=== PATIENT | female | born 1945 | race Caucasian/White ===

== ENCOUNTER 2016-04-20 09:23 | Emergency (ER) | payer MEDICARE, BC ==
[2016-04-20 09:41] VITALS: BP 135/63
--- NOTE | 2016-04-20 10:03 | UC ---
Eye Complaint HPI - HPI Summary HPI Summary: right eye itchy pink with clear drainage for one day---no other cold symptoms - History of Current Complaint Chief Complaint: UCEye Stated Complaint: POSS PINK EYE COMPLAINT Time Seen by Provider: 04/20/16 09:37 Hx Obtained From: Patient ?: No Onset/Duration: Sudden Onset, Lasting Days - 1 Timing: Constant Severity Initially: Mild Severity Currently: Mild Location of Injury: Conjunctiva Character: Foreign Body Sensation Aggravating Factor(s): Nothing Alleviating Factor(s): Nothing Associated Signs And Symptoms: Positive: Drainage (Clear). Negative: Photophobia, Drainage (Purulent), Vision Impairment Bilateral, Vision Impairment Right, Vision Impairment Left, Fever, Swelling - Allergies/Home Medications Allergies/Adverse Reactions: Allergies Allergy/AdvReac Type Severity Reaction Status Date / Time No Known Allergies Allergy Verified 04/20/16 09:34 Home Medications: Home Medications Amlodipine Besylate [Norvasc-] 04/20/16 [History] Aspirin [[facility] Adult] 04/20/16 [History] Hydrochlorothiazide [Microzide-] 04/20/16 [History] PMH/Surg Hx/FS Hx/Imm Hx Previously Healthy: No Cardiovascular History Of: Reports: Hypertension Denies: Cardiac Disorders Cancer History Of: Denies: Breast Cancer - Surgical History Surgical History: None - Family History Family History: denies cardio-vascular issues in family lineage - Social History Occupation: Retired Lives: With Family Alcohol Use: Daily Alcohol Amount: 1 glass of wine every night Substance Use Type: None Smoking Status (MU): Never Smoked Tobacco Review of Systems Constitutional: Negative Skin: Negative Eyes: Drainage - od clear, Eye Redness - od ENT: Negative Respiratory: Negative Cardiovascular: Negative Gastrointestinal: Negative Genitourinary: Negative Motor: Negative Neurovascular: Negative Musculoskeletal: Negative Neurological: Negative Psychological: Negative All Other Systems Reviewed And Are Negative: Yes Physical Exam Triage Information Reviewed: Yes Appearance: Well-Appearing, No Pain Distress, Well-Nourished Vital Signs: Initial Vital Signs Temp 99.4 F 04/20/16 09:36 Pulse 75 04/20/16 09:36 Resp 16 04/20/16 09:36 BP 135/63 04/20/16 09:36 Pulse Ox 100 04/20/16 09:36 Vital Signs Reviewed: Yes Eye Exam: Normal Eyes: Positive: Conjunctiva Inflamed - od, Discharge - clear od ENT Exam: Normal ENT: Positive: Normal ENT inspection, Hearing grossly normal, Pharynx normal, Nasal drainage, TMs normal. Negative: Tonsillar swelling, Tonsillar exudate, Trismus, Muffled/hoarse voice Dental Exam: Normal Neck exam: Normal Neck: Positive: Supple, Nontender Respiratory Exam: Normal Respiratory: Positive: No respiratory distress, No accessory muscle use Cardiovascular Exam: Normal Cardiovascular: Positive: RRR, Pulses Normal, Brisk Capillary Refill Musculoskeletal Exam: Normal Musculoskeletal: Positive: Strength Intact, ROM Intact, No Edema Neurological Exam: Normal Neurological: Positive: Alert, Muscle Tone Normal Psychological Exam: Normal Skin Exam: Normal Eye Complaint Course/Dx - Course Course Of Treatment: polytrim eye drops---concider zyrtec as well follow with pcp re-check prn - Differential Dx/Diagnosis Differential Diagnosis/HQI/PQRI: Conjunctivitis, Periorbital Cellulitis, Orbital Cellulitis Provider Diagnoses: OD Conjuctivitis Discharge - Discharge Plan Condition: Stable Disposition: HOME Prescriptions: Polymyx/Trimethoprim OPTH* [Polytrim OPHTH*] 1 drop RIGHT EYE Q3H #1 btl Patient Education Materials: How to Use Eye Drops (ED), Conjunctivitis (ED) Referrals: Nicho Olivo MD [Primary Care Provider] - If Needed
== END 2016-04-20 10:05 | disposition home or self-care (01) ==
LOC: UCEAST 09:23
DX: H10.31 Unspecified acute conjunctivitis, right eye (principal); I10 Essential (primary) hypertension; Z79.82 Long term (current) use of aspirin
CPT/HCPCS: 99212; G0463

== ENCOUNTER 2016-07-22 10:33 | Emergency (ER) | payer MEDICARE, BC ==
[2016-07-22] MEDS ORDERED: HYDROcodone/ACETAMIN 5-325 MG* 1 TAB PO ONE (11:38)
[2016-07-22 11:47] VITALS: BP 125/78
--- NOTE | 2016-07-22 12:11 | RAD ---
INDICATION: Right thumb injury COMPARISON: None TECHNIQUE: AP, lateral, and oblique views were obtained. FINDINGS: There is no acute fracture. There is moderate IP, MCP, and CMC joint osteoarthritis. There is mild soft tissue swelling at the IP joint. IMPRESSION: OSTEOARTHRITIS. NO ACUTE FRACTURE.
--- NOTE | 2016-07-22 12:27 | UC ---
Upper Extremity HPI - HPI Summary HPI Summary: Shut right thumb in car door yesterday, has full rom bruising 2/3 upper thumb, subungal hematoma, well approximated 32.5 cm laceration on lateral hernandez surface of thumb - History of Current Complaint Chief Complaint: UCUpperExtremity Stated Complaint: THUMB INJURY Time Seen by Provider: 07/22/16 11:33 Hx Obtained From: Patient Hx Last Menstrual Period: NA ?: No Onset/Duration: Sudden Onset, Lasting Days - 1, Still Present Severity Initially: Moderate Severity Currently: Moderate Pain Intensity: 6 Pain Scale Used: 0-10 Numeric Location Of Pain: Is Discrete @ - right thumb Character: Aching Aggravating Factor(s): Movement, Lifting Alleviating Factor(s): Ice, OTC Meds Associated Signs And Symptoms: Positive: Swelling, Redness, Bruising Related History: Dominant Hand Right - Allergies/Home Medications Allergies/Adverse Reactions: Allergies Allergy/AdvReac Type Severity Reaction Status Date / Time No Known Allergies Allergy Verified 04/20/16 09:34 PMH/Surg Hx/FS Hx/Imm Hx Previously Healthy: No Cardiovascular History Of: Reports: Hypertension Denies: Cardiac Disorders Cancer History Of: Denies: Breast Cancer - Surgical History Surgical History: None - Family History Family History: denies cardio-vascular issues in family lineage - Social History Occupation: Retired Lives: With Family Alcohol Use: Daily Alcohol Amount: 1 glass of wine every night Substance Use Type: None Smoking Status (MU): Never Smoked Tobacco Review of Systems Constitutional: Negative Skin: Bruising - right thumb, Other - approximated 2.5 cm laceration on lateral hernandez surface of thumb Eyes: Negative ENT: Negative Respiratory: Negative Cardiovascular: Negative Gastrointestinal: Negative Genitourinary: Negative Motor: Negative Neurovascular: Negative Musculoskeletal: Arthralgia - right thumb, Edema - right thumb Neurological: Negative Psychological: Negative All Other Systems Reviewed And Are Negative: Yes Physical Exam Triage Information Reviewed: Yes Appearance: Well-Appearing, No Pain Distress, Well-Nourished Vital Signs: Initial Vital Signs Temp 98.3 F 07/22/16 11:42 Pulse 74 07/22/16 11:42 Resp 16 07/22/16 11:42 BP 125/78 07/22/16 11:42 Pulse Ox 99 07/22/16 11:42 Vital Signs Reviewed: Yes Eye Exam: Normal Eyes: Positive: Conjunctiva Clear ENT Exam: Normal ENT: Positive: Normal ENT inspection, Hearing grossly normal. Negative: Nasal congestion, Nasal drainage, Trismus, Muffled/hoarse voice Dental Exam: Normal Neck exam: Normal Neck: Positive: Supple, Nontender Respiratory Exam: Normal Respiratory: Positive: Chest non-tender, Lungs clear, Normal breath sounds, No respiratory distress, No accessory muscle use Cardiovascular Exam: Normal Cardiovascular: Positive: RRR, No Murmur, Pulses Normal, Brisk Capillary Refill Musculoskeletal Exam: Normal Musculoskeletal: Positive: Strength Intact, ROM Intact, Edema @ - right thumb Neurological Exam: Normal Neurological: Positive: Alert, Muscle Tone Normal Psychological Exam: Normal Psychological: Positive: Normal Response To Family Skin Exam: Normal Skin: Positive: Other - 2.5 cm laceration well approximated- Diagnostics - Radiology No standard instances Xray Interpretation: No Acute Changes Radiology Interpretation Completed By: Radiologist Upper Extremity Course/Dx - Course Course Of Treatment: bandage, splint, folllow with pcp - Differential Dx/Diagnosis Differential Diagnosis/HQI/PQRI: Bursitis, Contusion, Fracture (Open), Fracture (Closed), Strain, Sprain Provider Diagnoses: contusion, crush injury no fracture tho (R) thumb Discharge - Discharge Plan Condition: Stable Disposition: HOME Patient Education Materials: Subungual Hematoma (ED), Contusion in Adults (ED) , RICE Therapy (ED), Laceration Without Closure (ED), Crush Injury (ED) Referrals: Nicho Olivo MD [Primary Care Provider] - If Needed
== END 2016-07-22 13:15 | disposition home or self-care (01) ==
LOC: UCEAST 10:33
DX: S67.01XA Crushing injury of right thumb, initial encounter (principal); I10 Essential (primary) hypertension; W23.1XXA Caught, crushed, jammed, or pinched between stationary objects, initial encounter
CPT/HCPCS: 99211; G0463

== ENCOUNTER 2018-07-22 17:16 | Inpatient (IN) | payer BC, MEDICARE ==
--- NOTE | 2018-07-22 18:16 | ED ---
Abdominal Pain/Female - HPI Summary HPI Summary: A 73 y/o female presents to [facility] with a chief complaint of lower abdominal pain today. She reports a Hx of chronic diarrhea. She had diarrhea at 14:00 today. She says her pain is now an 8/10 in severity. She denies any CP or SOB. She cannot pass gas. She also c/o N/V, last vomiting one hour [facility]. She was not diagnosed with Chron's or ulcerative colitis. She believes she has anxiety. She denies having any surgeries. She is on BP medication and a water pill. She also takes Imodium for the diarrhea. - History of Current Complaint Chief Complaint: EDAbdBlackin Stated Complaint: ABD PAIN PER Time Seen by Provider: 07/22/18 17:43 Hx Obtained From: Patient Hx Last Menstrual Period: NA Onset/Duration: Sudden Onset, Lasting Hours Timing: Constant Severity Initially: Severe Severity Currently: Severe Pain Intensity: 8 Pain Scale Used: 0-10 Numeric Location: Diffuse - lower Radiates: No Character: Other: - unable to describe Aggravating Factor(s): Nothing Alleviating Factor(s): Nothing Associated Signs and Symptoms: Positive: Nausea, Vomiting, Diarrhea. Negative: Fever, Chest Pain Allergies/Adverse Reactions: Allergies Allergy/AdvReac Type Severity Reaction Status Date / Time No Known Allergies Allergy Verified 07/22/18 17:44 Home Medications: Home Medications Aspirin EC TAB* [Ecotrin EC Low Dose 81 MG*] 81 mg PO DAILY 07/22/18 [History Confirmed 07/22/18] Hydrochlorothiazide TAB* [Hydrodiuril TAB*] 12.5 mg PO DAILY 07/22/18 [History Confirmed 07/22/18] Loperamide HCl [Imodium A-D] 2 mg PO DAILY PRN 07/22/18 [History Confirmed 07/22] amLODIPine TAB* [Norvasc 5 mg TAB*] 10 mg PO DAILY 07/22/18 [History Confirmed 07/22/18] PMH/Surg Hx/FS Hx/Imm Hx Cardiovascular History: Reports: Hx Hypertension Sensory History: Denies: Hx Deafness EENT History: Denies: Hx Deafness - Cancer History Hx Chemotherapy: No Hx Radiation Therapy: No Infectious Disease History: No Infectious Disease History: Denies: Traveled Outside the [place] in Last 30 Days - Family History Known Family History: Negative: Blood Disorder Family History: denies cardio-vascular issues in family lineage - Social History Alcohol Use: Daily Alcohol Amount: 1 glass of wine every night Substance Use Type: Reports: None Smoking Status (MU): Never Smoked Tobacco Review of Systems Negative: Fever Negative: Chest Pain Negative: Shortness Of Breath Positive: Abdominal Pain, Vomiting, Diarrhea, Nausea All Other Systems Reviewed And Are Negative: Yes Physical Exam - Summary Physical Exam Summary: GENERAL: Patient is a well-developed and nourished F who is lying comfortable in the stretcher. Patient is not in any acute respiratory distress. HEAD AND FACE: Normocephalic EYES: PERRLA, EOMI x 2. EARS: Hearing grossly intact. MOUTH: Oropharynx within normal limits. NECK: Supple, trachea is midline, no adenopathy, no JVD, no carotid bruit. CHEST: Symmetric, no tenderness at palpation LUNGS: Clear to auscultation bilaterally. No wheezing or crackles. CVS: Regular rate and rhythm, S1 and S2 present, no murmurs or gallops appreciated. ABDOMEN: Soft, TTP no rebound or guarding. Bowel sounds are normal. No abdominal abnormal pulsations. EXTREMITIES: Full ROM in all major joints, no edema, no cyanosis or clubbing. NEURO: Alert and oriented x 3. No acute neurological deficits. Speech is normal and follows commands. SKIN: Dry and warm Triage Information Reviewed: Yes Vital Signs On Initial Exam: Initial Vitals Temp Pulse Resp BP Pulse Ox 98.3 F 75 16 132/83 97 07/22/18 17:21 07/22/18 17:21 07/22/18 17:21 07/22/18 17:21 07/22/18 17:21 Vital Signs Reviewed: Yes Diagnostics - Vital Signs Vital Signs Temp Pulse Resp BP Pulse Ox 07/22/18 17:21 98.3 F 75 16 132/83 97 - Laboratory Result Diagrams: 07/23/18 05:28 07/23/18 05:28 Lab Statement: Any lab studies that have been ordered have been reviewed, and results considered in the medical decision making process. Abdominal Pain Fem Course/Dx - Course Course Of Treatment: A 73 y/o female presents to [facility] with a chief complaint of lower abdominal pain today. She reports a Hx of chronic diarrhea. The physical exam revealed that the patient was TTP in her lower abdomen. The patient will be signed out from Dr. Benson to Dr. Parikh upon shift change pending labs and CT abdomen/pelvis. - Diagnoses Provider Diagnoses: Acute diverticulitis, Perforated bowel Discharge - Sign-Out/Discharge Documenting (check all that apply): Sign-Out Patient Signing out patient TO: Israel Parikh - pending labs and CT abdomen/pelvis Patient Received Moderate/Deep Sedation with Procedure: No - Discharge Plan Condition: Stable Disposition: ADMITTED TO [facility] - Billing Disposition and Condition Condition: STABLE Disposition: Admitted to [facility] - Attestation Statements Document Initiated by Scribe: Yes Documenting Scribe: José Miguel Trujillo Provider For Whom Scribe is Documenting (Include Credential): Flora Benson MD Scribe Attestation: José Miguel Fortune scribed for Flora Benson MD on 07/23/18 at 1250. Scribe Documentation Reviewed: Yes Provider Attestation: The documentation as recorded by the José Miguel salazar accurately reflects the service I personally performed and the decisions made by me, Ramon Benson MD Status of Scribe Document: Viewed
[2018-07-22] MEDS ORDERED: Ondansetron INJ* 2 MG/ML VIAL IV ONE (18:31)
[2018-07-22] MEDS ORDERED: NS 0.9% 1000 ML** 1,000 ML IV ONE ×2 (18:31→23:30)
[2018-07-22] MEDS ORDERED: Morphine 4 MG/ML VIAL (1 ml) 4 MG/ML VIAL IV ONE (18:31)
[2018-07-22 19:39] LABS: ABS Basophils 0.1 10^3/ul (0-0.2); ABS Eosinophils 0 10^3/ul (0-0.6); ABS Lymphocytes 0.5 10^3/ul (1.0-4.8); ABS Monocytes 0.7 10^3/ul (0-0.8); ABS Nucleated RBC 0 10^3/ul; Eosinophil % 0.1 %; Hematocrit 40 % (33-41); Hemoglobin 13.7 g/dL (12.0-16.0); Mean Corpuscular HGB Conc 34 g/dL (31-36); Mean Corpuscular Hemoglobin 33 pg (27-31); Mean Corpuscular Volume 97 fL (80-97); Mean Platelet Volume 9.1 fL (7.4-10.4); Nucleated Red Blood Cells % 0; Platelet Count 217 10^3/uL (150-450); Red Blood Count 4.15 10^6 /uL (3.70-4.87); Red Cell Distribution Width 12 % (10.5-15); White Blood Count 12.3 10^3/uL (3.5-10.8)
[2018-07-22 19:51] LABS: Albumin 3.7 g/dL (3.2-5.2); Albumin/Globulin Ratio 1.4 (1-3); BUN/Creatinine Ratio 17.6 (8-20); C Reactive Protein 33.99 mg/L (<8.01); Calcium 8.9 mg/dL (8.6-10.3); EGFR African American 92.6 (>60); EGFR Non-African American 76.5 (>60); Globulin 2.7 g/dL (2-4); Potassium 3.7 mmol/L (3.5-5.0); Total Bilirubin 0.6 mg/dL (0.2-1.0); Total Protein 6.4 g/dL (6.4-8.9)
--- NOTE | 2018-07-22 21:16 | ED ---
Progress - Progress Note Progress Note: Patient signed out from Dr. Benson, awaiting pending CT Abd/Pel and labs, pending disposition. - Results/Orders Results/Orders: Chest X-ray reveals no acute processes as per ED Physician. CT A/P reveals as per radiologist. 1. There is colonic diverticulosis with abnormal wall thickening and fat stranding in the sigmoid colon consistent with acute diverticulitis and there are pericolonic air collections in the pelvis consistent with loculated perforation related to acute diverticulitis but no visible discrete abscess. No nonloculated free air however. 2. There is oral contrast in the distal esophagus, cannot exclude gastroesophageal reflux. 3. There is cholelithiasis without pericholecystic inflammatory change. 4. There are mildly prominent loops of jejunum in the upper to midabdomen with air-fluid levels suspicious for mild focal ileus versus some degree of small bowel obstruction. The ED Physician has reviewed the radiology report. Course/Dx - Course Course Of Treatment: 73 year old [facility] complains of lower abdominal pain beginnign today. Patient was signed out from Dr. Benson, awaiting labs and CT Abd/Pel. Labs are unremarkable. CT Abd/Pel, per radiologist, shows positive findings. The dx will be Acute diverticulitis. Perforated Bowel. Chest X-ray reveals no acute process. We discussed CT A/P findings with Dr. Chou at 0000. He recommended that the patient be admitted to the hospital. We paged the hospitalist at 0005. We discussed patient care with Dr. George at 0012 and the hospitalist accepts patient care. The patient will be admitted to the [facility]. The patient is agreeable to this plan. - Diagnoses Provider Diagnoses: Acute diverticulitis, Perforated bowel - Provider Notifications Discussed Care Of Patient With: Katarzyna George - Patient Care Time Discussed With Above Provider: 00:12 Discharge - Sign-Out/Discharge Documenting (check all that apply): Patient Departure - Admitted to the [facility] Patient Received Moderate/Deep Sedation with Procedure: No - Discharge Plan Condition: Stable Disposition: ADMITTED TO [facility] - Attestation Statements Document Initiated by Scribe: Yes Documenting Scribe: Anette Pteerson Provider For Whom Scribe is Documenting (Include Credential): Israel Parikh MD Scribe Attestation: Anette Fortune, scribed for Israel Parikh MD on 07/23/18 at 0107. Status of Scribe Document: Ready
[2018-07-22] MEDS ORDERED: Iohexol 300* (CONTRAST) 10 ML SDV IV ONE (21:22)
[2018-07-22 22:25] LABS: Urine Appearance Cloudy; Urine Bacteria Absent (Absent); Urine Bilirubin Negative (Negative); Urine Blood 1+ (Negative); Urine Color Yellow; Urine Glucose Negative (Negative); Urine Ketones 1+ (Negative); Urine Nitrite Negative (Negative); Urine Protein Negative (Negative); Urine Red Blood Cell Trace(0-2/hpf) (Absent); Urine Specific Gravity 1.042 (1.010-1.030); Urine Squamous Epithelial Cell Present (Absent); Urine Urobilinogen Negative (Negative); Urine White Blood Cell 2+(11-20/hpf) (Absent)
[2018-07-22] MEDS ORDERED: Acetaminophen TAB* 325 MG PO ONE (23:29)
[2018-07-22] MEDS ORDERED: ED Piperacillin/Tazobac 3.375 3.375 GM/100 ML PREMIX.SET IVPB ONE (23:29)
[2018-07-22] MEDS ORDERED: Zosyn 3.375 GM IV - ED ONCE IVPB ONE ×2 (23:50)
[2018-07-23] MEDS ORDERED: Morphine INJ* 2 MG/ML 1 ML SYRINGE (TWO MG - NEW SYRINGE VERSION) IV PRN (00:16)
[2018-07-23] MEDS ORDERED: Ondansetron INJ* 2 MG/ML VIAL IV PRN (00:16)
[2018-07-23] MEDS ORDERED: Zosyn per Pharmacy* NOTE FOLLOW UP SCH (01:00)
[2018-07-23] MEDS ORDERED: Morphine 4 MG/ML VIAL (1 ml) 4 MG/ML VIAL IV PRN (01:25)
[2018-07-23] MEDS: D5W 1/2 NS KCl 20 Meq 1000 ML* 1,000 ML IV SCH ×2 (01:54→13:11)
[2018-07-23] MEDS: ZOSYN 3.375 GM Q8H per EXTENDED INFUSION IVPB SCH ×6 (04:24→19:25)
--- NOTE | 2018-07-23 04:35 | HP ---
CC: Dr. Nicho Olivo * HISTORY AND PHYSICAL: DATE OF ADMISSION: 07/23/18 PRIMARY CARE PHYSICIAN: Dr. Nicho Olivo. HEALTHCARE PROXY: Kiko Noe, , . CODE STATUS: Full code. CHIEF COMPLAINT: Subacute lower abdominal pain. HISTORY OF PRESENT ILLNESS: Ms. Noe is a 73-year-old woman with hypertension and chronic intermittent diarrhea, who is presenting with subacute crampy lower abdominal pain. She reports that this pain started approximately 3 days ago and was not associated with any other symptoms at that time. She did report diarrhea, which was chronic, unchanged from previously, and without blood or black in her stools. Her appetite was fine and her symptoms had improved by the next day, so she did not think anything of her initial episode of abdominal pain. However, on day of presentation, bilateral lower abdominal pain returned and was progressive and associated with nausea and vomiting. She took Pepto- Bismol for the pain, but in the afternoon on day of presentation, she vomited the medication. She denies recent fevers, chills, night sweats, chest pain, shortness of breath, or constipation. She denies any recent changes to diet, sick contacts, and no recent travel. In the emergency room, the patient was initially without concerning vital signs or lab findings; however, while pending abdominal CT, the patient was noted to have a fever of 102.8. Her lactate was normal, and her blood pressures were also normal. CT scan resulted concerning for perforated diverticulitis, so Surgery was consulted, who recommended to admit the patient with IV antibiotics with plan to evaluated her in the morning. The patient was started on IV Zosyn , given Zofran, 2 L of normal saline, and morphine and admitted to Medicine. PAST MEDICAL HISTORY: 1. Hypertension. 2. Chronic diarrhea associated with anxiety. PAST SURGICAL HISTORY: 1. 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 2. Oophorectomy. HOME MEDICATIONS: 1. Amlodipine 10 mg daily. 2. Hydrochlorothiazide 12.5 mg daily. 3. Aspirin 81 mg daily. 4. Loperamide 2 mg daily as needed for diarrhea. ALLERGIES: No known drug allergies. FAMILY HISTORY: Father from brain tumor. Mother also had breast tumors. No history of GI illness or colon cancer. 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 She lives with her . She denies tobacco use or drugs, but does drink 1 to 2 glasses of wine every night. PHYSICAL EXAMINATION GENERAL: Well-appearing woman, in no acute distress, nontoxic appearing. VITAL SIGNS: T-max 102.8, heart rate 70s, respiratory rate 12, blood pressure 113/75, SaO2 98% on 2 L nasal cannula. HEENT: Pupils equal, round, and reactive to light. NECK: No JVD. LUNGS: Clear to auscultation bilaterally. CARDIAC: Regular rate and rhythm. No murmurs, gallops, or rubs. ABDOMEN: Soft. Mild tenderness to palpation over right and left lower quadrants without guarding or rebound. Hyperactive bowel sounds. EXTREMITIES: Warm and well perfused. No edema. NEUROLOGIC: Alert and oriented x3. DIAGNOSTIC STUDIES/LAB DATA: Labs reviewed and significant for leukocytosis 12.3 with neutrophilic predominance. Creatinine normal 0.74. C-reactive protein 34. Lactate normal. Urinalysis significant for ketones, trace rbc, 2+ leukocyte esterase and wbc, negative nitrites, absent bacteria. Diagnostic imagin. CT abdomen and pelvis with contrast showing colonic diverticulosis with abnormal wall thickening and fat stranding in the sigmoid colon consistent with acute diverticulitis; pericolonic air collections in the pelvis consistent with loculated perforation related to acute diverticulitis, but no visible discrete abscess. No non-loculated free air. 2. Oral contrast in the distal esophagus, cannot exclude gastroesophageal reflux disease. 3. Cholelithiasis without pericholecystic inflammatory change for mildly prominent loops of jejunum in the upper to mid abdomen with air-fluid level suspicious for mild focal ileus versus some degree of small bowel obstruction. ASSESSMENT: A 73-year-old woman with hypertension and anxiety-related diarrhea , presenting with subacute lower abdominal pain associated with nausea and vomiting, found with fever, leukocytosis, and CT concerning for perforated diverticulitis. PLAN: 1. Acute perforated diverticulitis. Surgery is aware of patient and will see her in the morning. Currently, no evidence of severe sepsis. We will continue the patient on Zosyn with maintenance fluids given n.p.o. if she needs to go to the OR. We will hold aspirin in case of surgery, as well. Hold home loperamide. Pain control with Tylenol for mild pain and morphine for [id number] pain. Follow up blood cultures. 2. Hypertension. Will hold home anti-hypertensives in setting of infection. 3. DVT prophylaxis: The patient is ambulatory, holding medical DVT prophylaxis in case of surgery. 4. The patient is full code. TIME SPENT: Approximately 60 minutes were spent on admission of this patient, more than half of which spent at bedside for interview and exam. [id number]/[facility] #: [id number] WILMA
[2018-07-23] MEDS: Acetaminophen TAB* 325 MG PO PRN ×2 (06:01→13:16)
[2018-07-23 06:10] LABS: Hematocrit 36 % (33-41); Hemoglobin 12.1 g/dL (12.0-16.0); Mean Corpuscular HGB Conc 34 g/dL (31-36); Mean Corpuscular Hemoglobin 33 pg (27-31); Mean Corpuscular Volume 97 fL (80-97); Mean Platelet Volume 8.9 fL (7.4-10.4); Platelet Count 178 10^3/uL (150-450); Red Cell Distribution Width 12 % (10.5-15); White Blood Count 13.8 10^3/uL (3.5-10.8)
[2018-07-23 06:17] LABS: Activated Partial Thrombo Time 29.8 seconds (26.0-36.3); INR 0.98 (0.77-1.02)
[2018-07-23 06:29] LABS: BUN/Creatinine Ratio 11.3 (8-20); Calcium 8.1 mg/dL (8.6-10.3); EGFR African American 84.6 (>60); EGFR Non-African American 69.9 (>60); Potassium 3.7 mmol/L (3.5-5.0)
[2018-07-23] MEDS ORDERED: amLODIPine TAB* 5 MG PO SCH (09:00)
--- NOTE | 2018-07-23 14:46 | CONS ---
CC: Nicho Olivo MD* SURGICAL CONSULTATION: DATE OF CONSULT: 07/23/18 REASON FOR CONSULT: Perforated diverticulitis. HISTORY OF PRESENT ILLNESS: Audelia Noe is a 73-year-old female, who presented to [facility] Emergency Room on the evening of 07/22/18 with a complaint of sharp sudden onset lower abdominal pain following a bowel movement. The patient reports that the pain is like gas pain, but much more severe. She reports that she had a large bout of diarrhea at that time, but denied any blood per rectum. She recalls an earlier episode of similar pain on Saturday morning 2 days prior while she was at jehov[employer]. She had associated chills , but denied any fever, nausea, or vomiting. On that day, after resting and taking a nap, she felt better and had felt fine on Saturday. In the emergency room, the patient was found to have a fever of 102.[address] scan was ordered. Her WBCs were elevated at 12.3. She denied any dysuria or hematuria. She reports episodes of chronic diarrhea that she relates to anxiety. She reports she has had a colonoscopy a year and a half ago and was told that was normal and she did not need further colonoscopies. The patient on CT scan was noted to have evidence of diverticulitis of the sigmoid colon with punctate extraluminal air without evidence of any abscess. She was admitted to the hospitalist service and placed on IV Zosyn. Today, her pain is more centrally located. She has only been taking Tylenol for pain. PAST MEDICAL HISTORY: Hypertension, colon polyps, chronic diarrhea, anxiety. PAST SURGICAL HISTORY: She had a right breast lumpectomy for a benign tumor in 1979. She had an oophorectomy in 1990. Both surgeries in [place]. MEDICATIONS: Home medications are: 1. Amlodipine 10 mg daily. 2. Hydrochlorothiazide 12.5 mg daily. 3. Baby aspirin. ALLERGIES: No known drug allergies. FAMILY HISTORY: Father had brain tumor, in his 70s. Mother at age 93. She has a brother who at age 19 from accident. No history of colon cancer. 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 She is nonsmoker and she drinks 3 glasses of wine nightly. She denies other drug use. She lives with her . PHYSICAL EXAM: She is a 73-year-old female, in no acute distress. Height is 5 feet 4 inches, weight 150 pounds, BMI 25.8. Her temperature is 98.8, pulse is 77, respirations are 16, O2 sat is 97% on supplemental nasal cannula O2, blood pressure is 110/60. HEENT: She is normocephalic with anicteric sclerae and mucous membranes are moist. There is no otorrhea or rhinorrhea. Neck is symmetrical. Trachea is midline. No palpable lymphadenopathy or masses. Her lungs are clear to auscultation bilaterally without wheezes, rales, or rhonchi. Heart is regular, S1, S2 with no murmurs, rubs, or gallops appreciated. The abdomen has a small scar infraumbilically. It is softly distended. Bowel sounds are present, but diminished. There is tenderness in the lower abdomen right and midline greater than left lower quadrant. There is no guarding. Extremities are warm without cyanosis, clubbing, or edema. She has some varicosities in the lower extremities. DIAGNOSTIC STUDIES/LAB DATA: WBC is 13.8 today with hemoglobin of 12.1 and hematocrit of 36 and a platelet count of 178. Her electrolytes are normal. Glucose is 128. LFTs on admission were normal and CRP was 34. CT scan images were reviewed by me and findings as reported above. IMPRESSION: A 73-year-old female with first episode of acute diverticulitis with microperforation as evidenced by punctate focal areas of gas extraluminally noted on the CT scan. There is no evidence of abscess or fluid collection. She does not have a surgical abdomen. PLAN/RECOMMENDATIONS: The patient will be managed with bowel rest, but we will allow clear liquids. Continue IV Zosyn per pharmacy protocol. Likely, will need 48 to 72 hours of IV antibiotics prior to being transitioned to oral antibiotics. I expect she will be able to be managed without need for surgical intervention; however, if her condition worsens, then repeat CT scan would be advised to evaluate for abscess formation and potentially drainage at that time. [id number]/[facility] #: [id number] [facility] CAMPUSLayla
--- NOTE | 2018-07-23 20:59 | PN ---
Subjective Date of Service: 07/23/18 Interval History: c/o mid abd pain, denies vomiting or diarrhea today. denies fever or chills, denies chest pain or shortness of breath. Family History: Unchanged from Admission Social History: Unchanged from Admission Past Medical History: Unchanged from Admission Objective Active Medications: Acetaminophen (Tylenol Tab*) 975 mg PO Q8H PRN PRN Reason: Fever or Mild Pain Last Admin: 07/23/18 13:16 Dose: 975 mg Potassium Chloride/Dextrose (D5w 1/2 Ns Kcl 20 Meq 1000 Ml*) 1,000 mls @ 100 mls/hr IV PER RATE [facility] Last Admin: 07/23/18 13:11 Dose: 100 mls/hr Piperacillin Sod/Tazobactam (Sod 3.375 gm/ Sodium Chloride) 100 mls @ 25 mls/ hr IVPB Q8H [facility] Last Admin: 07/23/18 19:25 Dose: 25 mls/hr Morphine Sulfate (Morphine 4 Mg/Ml Vial (1 Ml)) 2 mg IV Q4H PRN PRN Reason: PAIN - MODERATE TO SEVERE Last Admin: 07/23/18 19:14 Dose: 2 mg Ondansetron HCl (Zofran Inj*) 4 mg IV Q6H PRN PRN Reason: NAUSEA/VOMITING Pharmacy Consult (Zosyn Per Pharmacy*) 1 note FOLLOW UP .ZOSYN PER PHARMACY [facility] Vital Signs - 8 hr 07/23/18 07/23/18 19:14 20:50 Respiratory 18 18 Rate Oxygen Devices in Use Now: Nasal Cannula Appearance: alert and oriented lying in bed, no acute distress Eyes: No Scleral Icterus Ears/Nose/Mouth/Throat: Clear Oropharnyx, Mucous Membranes Moist Neck: NL Appearance and Movements; NL JVP, Trachea Midline Respiratory: Symmetrical Chest Expansion and Respiratory Effort, Clear to Auscultation Cardiovascular: NL Sounds; No Murmurs; No JVD, No Edema Abdominal: - - mid abd tenderness , BS positive x 4 , soft Extremities: No Edema, No Clubbing, Cyanosis Skin: No Rash or Ulcers Neurological: Alert and Oriented x 3 Nutrition: Taking PO's Result Diagrams: 07/23/18 05:28 07/23/18 05:28 Microbiology and Other Data: Microbiology 07/22/18 19:25 Aerobic Blood Culture - Preliminary Blood Venous No Growth Day 1 Anaerobic Blood Culture - Preliminary No Growth Day 1 07/22/18 19:25 Aerobic Blood Culture - Preliminary Blood Venous No Growth Day 1 Anaerobic Blood Culture - Preliminary No Growth Day 1 Assess/Plan/Problems-Billing Assessment: Ms. Noe is a 73 y.o female with a pmhx of htn and chronic diarrhea who presented to the ER with abdominal pain x 3 days, spiked a fever in the ER and was admitted with perforated diverticulitis. - Patient Problems (1) Perforated diverticulum Current Visit: Yes Status: Acute Code(s): K57.80 - DVTRCLI OF INTEST, PART UNSP, W PERF AND ABSCESS W/O BLEED SNOMED Code(s): 50832956 Comment: - will continue on zosyn ivpb - surgery consult- recommended bowel rest, clear liquid diet, IV antibiotics 48 to [address] CT if worsening (2) HTN (hypertension) Current Visit: Yes Status: Acute Code(s): I10 - ESSENTIAL (PRIMARY) HYPERTENSION SNOMED Code(s): 85290837 Comment: - will hold medications for now d/t infection (3) DVT prophylaxis Current Visit: Yes Status: Acute Code(s): XMR4195 - SNOMED Code(s): 912954338 Comment: scd's (4) Full code status Current Visit: Yes Status: Acute Code(s): Z78.9 - OTHER SPECIFIED HEALTH STATUS SNOMED Code(s): 165847935 Status and Disposition: discharge home when medically stable
[2018-07-23] MEDS ORDERED: Heparin VIAL(*) 5000 UNITS/ML VIAL (FIVE THOUSAND) SUBCUT SCH (22:00)
[2018-07-24] MEDS: D5W 1/2 NS KCl 20 Meq 1000 ML* 1,000 ML IV SCH ×3 (00:25→20:05)
[2018-07-24] MEDS ORDERED: traZODone TAB* 50 MG TAB PO ONE (01:55)
[2018-07-24] MEDS ORDERED: Melatonin 3 MG TAB PO PRN (01:55)
[2018-07-24] MEDS: ZOSYN 3.375 GM Q8H per EXTENDED INFUSION IVPB SCH ×6 (04:22→20:05)
[2018-07-24 06:19] LABS: ABS Basophils 0 10^3/ul (0-0.2); ABS Eosinophils 0 10^3/ul (0-0.6); ABS Lymphocytes 0.8 10^3/ul (1.0-4.8); ABS Monocytes 0.5 10^3/ul (0-0.8); ABS Nucleated RBC 0 10^3/ul; Eosinophil % 0.2 %; Hematocrit 33 % (33-41); Hemoglobin 11.2 g/dL (12.0-16.0); Lymphocyte % 6.5 %; Mean Corpuscular HGB Conc 34 g/dL (31-36); Mean Corpuscular Hemoglobin 33 pg (27-31); Mean Corpuscular Volume 97 fL (80-97); Mean Platelet Volume 8.7 fL (7.4-10.4); Nucleated Red Blood Cells % 0; Platelet Count 166 10^3/uL (150-450); Red Blood Count 3.44 10^6 /uL (3.70-4.87); Red Cell Distribution Width 12 % (10.5-15); White Blood Count 12.4 10^3/uL (3.5-10.8)
[2018-07-24 06:36] LABS: BUN/Creatinine Ratio 7.4 (8-20); Calcium 7.9 mg/dL (8.6-10.3); EGFR African American 102.1 (>60); EGFR Non-African American 84.4 (>60); Potassium 3.3 mmol/L (3.5-5.0)
[2018-07-24] MEDS: KCL 20 MEQ/100 ML IVPREMIX* 20 MEQ/100 ML BAG IV SCH ×2 (10:52→15:16)
[2018-07-24] MEDS: Acetaminophen TAB* 325 MG PO PRN ×2 (11:01→18:26)
--- NOTE | 2018-07-24 13:56 | PN ---
Progress Note - Progress Note Date of Service: 07/24/18 SOAP: Subjective:Hospital Day # 2 acute diverticulitis with microperf []no abdominal pain at present;bouts of diarrhea and flatus;no n/v;has a headache;no chills Objective: Vital Signs Temp 99.2 F 07/24/18 11:33 Pulse 84 07/24/18 11:33 Resp 16 07/24/18 11:33 BP 128/45 07/24/18 11:33 Pulse Ox 93 07/24/18 11:33 Intake & Output 07/23/18 07/24/18 07/24/18 18:59 06:59 18:59 Intake Total 220 1099 954 Balance 220 1099 954 Intake: IV Fluids 999 954 D5W 1/2 NS 20 meq KCL 999 954 Oral 220 100 0 Other: Estimated Void Medium # Bowel Movements 2 3 Estimated Stool Amount Medium Medium # Voids 3 2 abd:+bs,soft,nondistended,mild tenderness lower mid and LLQ,no guarding,no rebound [] Assessment:no increased abdominal pain,not requiring opioids;tolerating sips of clears [] Plan:continue IV abx and bowel rest,will follow []
--- NOTE | 2018-07-24 15:31 | PN ---
Subjective Date of Service: 07/24/18 Interval History: Patient is feeling somewhat better. Pain only present with palpation, movement, none at rest. Mild Nausea and no vomiting. Patient denies CP, SOB, N/V, F/C. Patient has diarrhea with any oral intake. Patient states this is much more frequent than baseline diarrhea. Family History: Unchanged from Admission Social History: Unchanged from Admission Past Medical History: Unchanged from Admission Objective Active Medications: Acetaminophen (Tylenol Tab*) 975 mg PO Q8H PRN PRN Reason: Fever or Mild Pain Last Admin: 07/24/18 11:01 Dose: 975 mg Potassium Chloride/Dextrose (D5w 1/2 Ns Kcl 20 Meq 1000 Ml*) 1,000 mls @ 100 mls/hr IV PER RATE [facility] Last Admin: 07/24/18 10:00 Dose: 100 mls/hr Piperacillin Sod/Tazobactam (Sod 3.375 gm/ Sodium Chloride) 100 mls @ 25 mls/ hr IVPB Q8H [facility] Last Admin: 07/24/18 12:30 Dose: 25 mls/hr Melatonin (Melatonin) 3 mg PO BEDTIME PRN PRN Reason: SLEEP Morphine Sulfate (Morphine 4 Mg/Ml Vial (1 Ml)) 2 mg IV Q4H PRN PRN Reason: PAIN - MODERATE TO SEVERE Last Admin: 07/23/18 19:14 Dose: 2 mg Ondansetron HCl (Zofran Inj*) 4 mg IV Q6H PRN PRN Reason: NAUSEA/VOMITING Pharmacy Consult (Zosyn Per Pharmacy*) 1 note FOLLOW UP .ZOSYN PER PHARMACY [facility] Vital Signs - 8 hr 07/24/18 07/24/18 07/24/18 07:43 08:00 11:33 Temperature 99.1 F 99.2 F Pulse Rate 88 84 Respiratory 16 16 16 Rate Blood Pressure 122/51 128/45 (mmHg) O2 Sat by Pulse 94 93 Oximetry Oxygen Devices in Use Now: Nasal Cannula Appearance: Patient is a 73yo female who appears stated age and is sitting in the bed in NAD. Eyes: No Scleral Icterus, PERRLA Ears/Nose/Mouth/Throat: NL Teeth, Lips, Gums, Clear Oropharnyx, Mucous Membranes Moist Neck: NL Appearance and Movements; NL JVP, Trachea Midline Respiratory: Symmetrical Chest Expansion and Respiratory Effort, Clear to Auscultation Cardiovascular: NL Sounds; No Murmurs; No JVD, RRR, No Edema Abdominal: No Hepatosplenomegaly, - - Decreased bowel sounds. Tender to palpation in RLQ. Lymphatic: No Cervical Adenopathy Extremities: No Edema, No Clubbing, Cyanosis Skin: No Rash or Ulcers, No Nodules or Sclerosis Neurological: Alert and Oriented x 3, NL Sensation, NL Muscle Strength and Tone , - - CN II-XII intact. Result Diagrams: 07/24/18 06:09 07/24/18 06:09 Microbiology and Other Data: Microbiology 07/22/18 19:25 Aerobic Blood Culture - Preliminary Blood Venous No Growth Day 1 Anaerobic Blood Culture - Preliminary No Growth Day 1 07/22/18 19:25 Aerobic Blood Culture - Preliminary Blood Venous No Growth Day 1 Anaerobic Blood Culture - Preliminary No Growth Day 1 Assess/Plan/Problems-Billing Assessment: Ms. Noe is a 73 y.o female with a pmhx of htn and chronic diarrhea who presented to the ER with abdominal pain x 3 days, spiked a fever in the ER and was admitted with perforated diverticulitis and is improving on antibiotics. - Patient Problems (1) Perforated diverticulum Current Visit: Yes Status: Acute Code(s): K57.80 - DVTRCLI OF INTEST, PART UNSP, W PERF AND ABSCESS W/O BLEED SNOMED Code(s): 60844436 Comment: - Continue Zosyn - Surgery consult- recommended bowel rest, clear liquid diet, IV antibiotics 48 to [address] if worsening - Improving slowly, possible bowel obstruction, avoid anti-motility agents. (2) HTN (hypertension) Current Visit: Yes Status: Acute Code(s): I10 - ESSENTIAL (PRIMARY) HYPERTENSION SNOMED Code(s): 24089635 Comment: - Normotensive, hold antihypertensives at this time (3) DVT prophylaxis Current Visit: Yes Status: Acute Code(s): BHJ2505 - SNOMED Code(s): 587459637 Comment: - SCDs, Heparin. (4) Full code status Current Visit: Yes Status: Acute Code(s): Z78.9 - OTHER SPECIFIED HEALTH STATUS SNOMED Code(s): 032080530 Status and Disposition: Inpatient, hopeful discharge in 1-2 days.
[2018-07-24] MEDS: Heparin VIAL(*) 5000 UNITS/ML VIAL (FIVE THOUSAND) SUBCUT SCH (21:27)
[2018-07-25] MEDS ORDERED: LORazepam INJ* 2 MG/ML 1 ML VIAL IV PUSH ONE (00:56)
[2018-07-25 03:21] LABS: ABS Basophils 0 10^3/ul (0-0.2); ABS Eosinophils 0 10^3/ul (0-0.6); ABS Lymphocytes 0.7 10^3/ul (1.0-4.8); ABS Monocytes 0.6 10^3/ul (0-0.8); ABS Neutrophils 10.8 10^3/ul (1.5-7.7); ABS Nucleated RBC 0 10^3/ul; Eosinophil % 0.2 %; Hematocrit 37 % (33-41); Hemoglobin 12.2 g/dL (12.0-16.0); Lymphocyte % 5.4 %; Mean Corpuscular HGB Conc 33 g/dL (31-36); Mean Corpuscular Hemoglobin 32 pg (27-31); Mean Corpuscular Volume 98 fL (80-97); Mean Platelet Volume 8.8 fL (7.4-10.4); Nucleated Red Blood Cells % 0; Platelet Count 190 10^3/uL (150-450); Red Blood Count 3.78 10^6 /uL (3.70-4.87); Red Cell Distribution Width 12 % (10.5-15); White Blood Count 12.1 10^3/uL (3.5-10.8)
[2018-07-25 03:36] LABS: BUN/Creatinine Ratio 4.6 (8-20); Calcium 8.1 mg/dL (8.6-10.3); EGFR African American 107.5 (>60); EGFR Non-African American 88.9 (>60); Magnesium 1.9 mg/dL (1.9-2.7); Potassium 3.8 mmol/L (3.5-5.0)
[2018-07-25] MEDS: ZOSYN 3.375 GM Q8H per EXTENDED INFUSION IVPB SCH ×4 (04:14→12:19)
--- NOTE | 2018-07-25 04:20 | PN ---
Hospitalist Progress Note Cross coverage note. Called to bedside as pt was expressing anxiety, with alteration in mental status and confusion, pulling at clothes. On eval, pt AOx3 but very anxious, slightly tangential. Reports that she hasn't been apart from her this much. Also that some "unwise" visitors mentioned to her that they had diverticulitis too but never had to be hospitalized for it. She states that she is worried about why she isn't getting better and this causes her to have diarrhea, but she is also having diarrhea from the infection, which is making her nervous, so it's a cycle. She denies abdominal pain, SOB, or cough. on exam afeb, HR low 100s, RR 20 anxious, not diaphoretic lungs clear anteriorly heart tachy regular rhythm abd soft and nontender, no guarding or rebound, normoactive bowel sounds Impression/Plan: I wonder if this is hospital-induced delirium in this elderly woman with known infection. She was quickly redirectable. She would likely benefit from window bed and minimal disturbances at night. She also expresses anxiety and has a history of this, and I think this explains her tachycardia/hypertension/ tachypnea. We vandana her routine morning labs early and they are not concerning. Also added on blood cultures. Will hold off on chest/abd imaging for now given no respiratory symptoms and no new GI symptoms with normal exam. Will continue to monitor closely.
[2018-07-25] MEDS: D5W 1/2 NS KCl 20 Meq 1000 ML* 1,000 ML IV SCH (06:24)
[2018-07-25] MEDS: Heparin VIAL(*) 5000 UNITS/ML VIAL (FIVE THOUSAND) SUBCUT SCH ×2 (08:37→20:11)
--- NOTE | 2018-07-25 10:40 | PN ---
Progress Note - Progress Note Date of Service: 07/25/18 SOAP: Subjective: No pain. C/o diarrhea. Objective: Vital Signs Temp 98.4 F 07/25/18 07:32 Pulse 99 07/25/18 07:32 Resp 16 07/25/18 07:32 BP 143/65 07/25/18 07:32 Pulse Ox 92 07/25/18 07:32 Abd: soft and nontender. Intake & Output 07/24/18 07/25/18 07/25/18 18:59 06:59 18:59 Intake Total 1987 1979 Output Total 0 Balance 1987 1979 Intake: IV Fluids 1458 1949 D5W 1/2 NS 20 meq KCL 1458 1949 IVPB 31 ABX - ZOSYN 31 Oral 530 0 Output: Urine 0 Other: Estimated Void Medium Large # Bowel Movements 5 1 Estimated Stool Amount Medium Large # Voids 2 3 Assessment: Sigmoid diverticulitis. Improved and no need for surgical intervention. Chronic diarrhea, worse with antibiotics. Plan: Advance diet and transition to po abx. Try probiotics. F/u with GI as outpt for chronic diarrhea.
[2018-07-25] MEDS: Acetaminophen TAB* 325 MG PO PRN (12:24)
--- NOTE | 2018-07-25 15:11 | PN ---
Subjective Date of Service: 07/25/18 Interval History: Patient seen today, she was resting comfortably, No abdominal pain. She does have diarrhea chronic as per patient. Spoke to Dr. Fung and surgically recommended transition to oral antibiotics and possible discharge in am and GI follow up. Past Medical History: Unchanged from Admission Objective Active Medications: Acetaminophen (Tylenol Tab*) 975 mg PO Q8H PRN PRN Reason: Fever or Mild Pain Last Admin: 07/25/18 12:24 Dose: 975 mg Amoxicillin/Clavulanate Potassium (Augmentin Tab*) 875 mg PO BID [facility] Heparin Sodium (Porcine) (Heparin Vial(*)) 5,000 units SUBCUT Q12HR [facility] Last Admin: 07/25/18 08:37 Dose: 5,000 units Potassium Chloride/Dextrose (D5w 1/2 Ns Kcl 20 Meq 1000 Ml*) 1,000 mls @ 100 mls/hr IV PER RATE [facility] Last Admin: 07/25/18 06:24 Dose: 100 mls/hr Lactobacillus Rhamnosus (Lactobacillus Acidophilus*) 1 tab PO BID [facility] Melatonin (Melatonin) 3 mg PO BEDTIME PRN PRN Reason: SLEEP Last Admin: 07/24/18 23:34 Dose: 3 mg Metronidazole (Flagyl) 500 mg PO BID [facility] Morphine Sulfate (Morphine 4 Mg/Ml Vial (1 Ml)) 2 mg IV Q4H PRN PRN Reason: PAIN - MODERATE TO SEVERE Last Admin: 07/23/18 19:14 Dose: 2 mg Ondansetron HCl (Zofran Inj*) 4 mg IV Q6H PRN PRN Reason: NAUSEA/VOMITING Vital Signs - 8 hr 07/25/18 07/25/18 07:32 11:13 Temperature 98.4 F 98.5 F Pulse Rate 99 95 Respiratory 16 16 Rate Blood Pressure 143/65 150/70 (mmHg) O2 Sat by Pulse 92 93 Oximetry Oxygen Devices in Use Now: Nasal Cannula Appearance: Awake, alert. no acute distress. sleeping comfortably Eyes: No Scleral Icterus Ears/Nose/Mouth/Throat: NL Teeth, Lips, Gums, Mucous Membranes Moist Neck: NL Appearance and Movements; NL JVP, Trachea Midline Respiratory: Symmetrical Chest Expansion and Respiratory Effort, Clear to Auscultation Cardiovascular: NL Sounds; No Murmurs; No JVD Abdominal: NL Sounds; No Tenderness; No Distention Extremities: No Edema Neurological: Alert and Oriented x 3 Result Diagrams: 07/25/18 03:07 07/25/18 03:07 Microbiology and Other Data: Microbiology 07/22/18 19:25 Aerobic Blood Culture - Preliminary Blood Venous No Growth Day 1 Anaerobic Blood Culture - Preliminary No Growth Day 1 07/22/18 19:25 Aerobic Blood Culture - Preliminary Blood Venous No Growth Day 1 Anaerobic Blood Culture - Preliminary No Growth Day 1 Assess/Plan/Problems-Billing Assessment: Ms. Noe is a 73 y.o female with a pmhx of htn and chronic diarrhea who presented to the ER with abdominal pain x 3 days, spiked a fever in the ER and was admitted with perforated diverticulitis and is improving on antibiotics. - Patient Problems (1) Perforated diverticulum Current Visit: Yes Status: Acute Code(s): K57.80 - DVTRCLI OF INTEST, PART UNSP, W PERF AND ABSCESS W/O BLEED SNOMED Code(s): 83336516 Comment: - Will discontinue Zosyn, Transition to oral flagyl and augmentin - Surgery consult- recommended transtion to oral abx (recommendation implemented ) and possible discharge in am (2) HTN (hypertension) Current Visit: Yes Status: Acute Code(s): I10 - ESSENTIAL (PRIMARY) HYPERTENSION SNOMED Code(s): 13173981 Comment: - Normotensive, hold antihypertensives at this time (3) DVT prophylaxis Current Visit: Yes Status: Acute Code(s): IUC7665 - SNOMED Code(s): 062127847 Comment: - SCDs, Heparin. Status and Disposition: Inpatient, hopeful discharge in 1-2 days.
[2018-07-25] MEDS: metroNIDAZOLE * 500 MG TABLET PO SCH ×2 (16:47→20:11)
[2018-07-25] MEDS: Lactobacillus Acidophilus* 1 TAB PO SCH (20:11)
[2018-07-25] MEDS: Amoxicillin/Clavulanate TAB* 875 MG PO SCH (20:11)
[2018-07-26] MEDS ORDERED: Potassium Chlor TAB* 20 MEQ TAB.ER PO ONE (01:18)
[2018-07-26] MEDS: Acetaminophen TAB* 325 MG PO PRN (03:58)
[2018-07-26 06:14] LABS: ABS Basophils 0 10^3/ul (0-0.2); ABS Eosinophils 0.1 10^3/ul (0-0.6); ABS Lymphocytes 0.8 10^3/ul (1.0-4.8); ABS Monocytes 0.7 10^3/ul (0-0.8); ABS Neutrophils 7.8 10^3/ul (1.5-7.7); ABS Nucleated RBC 0 10^3/ul; Eosinophil % 0.7 %; Hematocrit 35 % (33-41); Hemoglobin 11.8 g/dL (12.0-16.0); Lymphocyte % 8.7 %; Mean Corpuscular HGB Conc 34 g/dL (31-36); Mean Corpuscular Hemoglobin 33 pg (27-31); Mean Corpuscular Volume 96 fL (80-97); Mean Platelet Volume 8.9 fL (7.4-10.4); Nucleated Red Blood Cells % 0; Platelet Count 230 10^3/uL (150-450); Red Blood Count 3.59 10^6 /uL (3.70-4.87); Red Cell Distribution Width 12 % (10.5-15); White Blood Count 9.4 10^3/uL (3.5-10.8)
[2018-07-26 06:34] LABS: Calcium 8.1 mg/dL (8.6-10.3); EGFR African American 97.1 (>60); EGFR Non-African American 80.3 (>60); Phosphorus 3.2 mg/dL (2.5-5.0); Potassium 3.6 mmol/L (3.5-5.0)
[2018-07-26] MEDS: metroNIDAZOLE * 500 MG TABLET PO SCH (08:32)
[2018-07-26] MEDS: Amoxicillin/Clavulanate TAB* 875 MG PO SCH (08:32)
[2018-07-26] MEDS: Lactobacillus Acidophilus* 1 TAB PO SCH (08:32)
[2018-07-26] MEDS: Heparin VIAL(*) 5000 UNITS/ML VIAL (FIVE THOUSAND) SUBCUT SCH (08:32)
--- NOTE | 2018-07-26 09:30 | PN ---
Progress Note - Progress Note Date of Service: 07/26/18 Note: Surgery Progress Note S: Patient has no pain today. She sad she tried to eat something yesterday and had emesis 2 hours later. Otherwise she is doing well. She remains afebrile. WBC today is normal. O: Vital Signs: Temp Pulse Resp BP Pulse Ox 97.8 F 85 19 133/56 92 07/26/18 08:23 07/26/18 08:23 07/26/18 08:23 07/26/18 08:23 07/26/18 08:23 Laboratory Last Values WBC 9.4 10^3/uL (3.5-10.8) 07/26/18 05:28 RBC 3.59 10^6 /uL (3.70-4.87) L 07/26/18 05:28 Hgb 11.8 g/dL (12.0-16.0) L 07/26/18 05:28 Hct 35 % (33-41) 07/26/18 05:28 MCV 96 fL (80-97) 07/26/18 05:28 MCH 33 pg (27-31) H 07/26/18 05:28 MCHC 34 g/dL (31-36) 07/26/18 05:28 RDW 12 % (10.5-15) 07/26/18 05:28 Plt Count 230 10^3/uL (150-450) 07/26/18 05:28 MPV 8.9 fL (7.4-10.4) 07/26/18 05:28 Neut % (Auto) 82.7 % 07/26/18 05:28 Lymph % (Auto) 8.7 % 07/26/18 05:28 Ceiba % (Auto) 7.5 % 07/26/18 05:28 Eos % (Auto) 0.7 % 07/26/18 05:28 Baso % (Auto) 0.4 % 07/26/18 05:28 Absolute Neuts (auto) 7.8 10^3/ul (1.5-7.7) H 07/26/18 05:28 Absolute Lymphs (auto) 0.8 10^3/ul (1.0-4.8) L 07/26/18 05:28 Absolute Monos (auto) 0.7 10^3/ul (0-0.8) 07/26/18 05:28 Absolute Eos (auto) 0.1 10^3/ul (0-0.6) 07/26/18 05:28 Absolute Basos (auto) 0 10^3/ul (0-0.2) 07/26/18 05:28 Absolute Nucleated RBC 0 10^3/ul 07/26/18 05:28 Nucleated RBC % 0 07/26/18 05:28 INR (Anticoag Therapy) 0.98 (0.77-1.02) 07/23/18 05:28 APTT 29.8 seconds (26.0-36.3) 07/23/18 05:28 Sodium 136 mmol/L (135-145) 07/26/18 05:28 Potassium 3.6 mmol/L (3.5-5.0) 07/26/18 05:28 Chloride 106 mmol/L (101-111) 07/26/18 05:28 Carbon Dioxide 23 mmol/L (22-32) 07/26/18 05:28 Anion Gap 7 mmol/L (2-11) 07/26/18 05:28 BUN 5 mg/dL (6-24) L 07/26/18 05:28 Creatinine 0.71 mg/dL (0.51-0.95) 07/26/18 05:28 Est GFR ( Amer) 97.1 (>60) 07/26/18 05:28 Est GFR (Non-Af Amer) 80.3 (>60) 07/26/18 05:28 BUN/Creatinine Ratio 7.0 (8-20) L 07/26/18 05:28 Glucose 100 mg/dL (70-100) 07/26/18 05:28 Lactic Acid 0.6 mmol/L (0.5-2.0) 07/24/18 06:09 Calcium 8.1 mg/dL (8.6-10.3) L 07/26/18 05:28 Phosphorus 3.2 mg/dL (2.5-5.0) 07/26/18 05:28 Magnesium 2.0 mg/dL (1.9-2.7) 07/26/18 05:28 Total Bilirubin 0.60 mg/dL (0.2-1.0) 07/22/18 19:25 AST 17 U/L (13-39) 07/22/18 19:25 ALT 22 U/L (7-52) 07/22/18 19:25 Alkaline Phosphatase 64 U/L (34-104) 07/22/18 19:25 C-Reactive Protein 33.99 mg/L (<8.01) H 07/22/18 19:25 Total Protein 6.4 g/dL (6.4-8.9) 07/22/18 19:25 Albumin 3.7 g/dL (3.2-5.2) 07/22/18 19:25 Globulin 2.7 g/dL (2-4) 07/22/18 19:25 Albumin/Globulin Ratio 1.4 (1-3) 07/22/18 19:25 Lipase 10 U/L (11.0-82.0) L 07/22/18 19:25 Urine Color Yellow 07/22/18 22:10 Urine Appearance Cloudy 07/22/18 22:10 Urine pH 5.0 (5-9) 07/22/18 22:10 Ur Specific [place] 1.042 (1.010-1.030) H 07/22/18 22:10 Urine Protein Negative (Negative) 07/22/18 22:10 Urine Ketones 1+ (Negative) A 07/22/18 22:10 Urine Blood 1+ (Negative) A 07/22/18 22:10 Urine Nitrate Negative (Negative) 07/22/18 22:10 Urine Bilirubin Negative (Negative) 07/22/18 22:10 Urine Urobilinogen Negative (Negative) 07/22/18 22:10 Ur Leukocyte Esterase 2+ (Negative) A 07/22/18 22:10 Urine WBC (Auto) 2+(11-20/hpf) (Absent) A 07/22/18 22:10 Urine RBC (Auto) Trace(0-2/hpf) (Absent) 07/22/18 22:10 Ur Squamous Epith Cells Present (Absent) A 07/22/18 22:10 Urine Bacteria Absent (Absent) 07/22/18 22:10 Urine Glucose Negative (Negative) 07/22/18 22:10 Blood Type O Positive 07/23/18 05:28 Antibody Screen Negative 07/23/18 05:28 Intake & Output 07/25/18 07/26/18 07/26/18 22:59 06:59 14:59 Intake Total 0 480 Balance 0 480 Intake: Oral 0 480 Other: Estimated Void Medium # Bowel Movements 2 Estimated Stool Amount Small # Voids 2 Abd: soft, non tender, non distended A/P: 73 F with diverticulitis, clinically improving. - Continue to monitor diet, I advised patient once she was tolerating diet she should be able to be discharged on oral antibiotics
[2018-07-26 14:06] VITALS: BP 135/58
--- NOTE | 2018-07-26 17:21 | DS ---
CC: Dr. Nicho Olivo; Dr. Julian Chou DISCHARGE SUMMARY: DATE OF ADMISSION: 07/23/18 DATE OF DISCHARGE: 07/26/18 PRIMARY CARE PROVIDER: Dr. Nicho Olivo. SURGEON: Dr. Julian Chou. FINAL DISCHARGE DIAGNOSES: 1. Perforated diverticulitis, medically managed. 2. Hypertension. 3. Chronic diarrhea. HOSPITAL COURSE: The patient presented to [facility] on 07/23/18 for lower abdominal pain and chronic intermittent diarrhea started about 3 days prior to presentation, but given her chronic diarrhea, she did not seek any immediate medical attention. There was no black-tarry stool, but over the 3 days that she started having this abdominal pain, the pain progressed and thought to be associ ated with some nausea and vomiting, did not relieve with Pepto-Bismol, which led her to come into the emergency room. In the emergency room, she did have a fever of 102.[address] abdomen was performed in the emergency room, which was revealing for perforated diverticulitis. Surgery was involved. [facility] were notified and they consulted and recommended IV therapy with antibiotics, Zofran, and medical management. The patient was initiated on intravenous Zosyn, was made n.p.o., gentle IV fluids, and p .r.n. morphine was implemented. The patient was seen by Surgery on the date of admission on 07/23/18 and their recommendation was to allow some clear liquid and continue with medical therapy and observ e for 48 to 72 hours. If she continued to improve, will be transitioned to oral antibiotics. The pat ient was maintained on the medical service. Her hospital course was uncomplicated and her WBC which was as high as 13.8 on 07/23/18 was down to 9.4 today prior to discharge. Her diet was advanced to a low-residue diet by Surgery. She had 1 episode of vomiting yesterday, but seems to be tolerating we ll. She was seen and evaluated today by Surgery and recommended to switch to oral antibiotics, maint ain her on low-residue diet and to follow up as an outpatient with GI for chronic diarrhea. She was seen and assessed by me today. The patient is eager to go home. Her abdominal exam is benign. There fore, I will implement Surgery's recommendation. We will place her on oral antibiotics and I will carver ve her follow up with Surgery as well as an outpatient. PHYSICAL EXAM: Today, her vital signs, 97.8 and still running about 99.3. Her T- max was 102.8 on t he night of admission. Otherwise, she has been unremarkable other than low-grade fever. Pulse 83, r espiratory rate 20, satting 94%, blood pressure 135/58. Generally, she is awake, alert, pleasant. D enies any abdominal pain. Denies nausea. She tolerated her breakfast this morning. Head and Neck: Normocephalic, atraumatic. Supple. Lungs: Clear to auscultation bilaterally. Cardiovascular: S1, S2. Regular rate and rhythm. Abdomen: Positive bowel sounds. Soft. No tenderness. No rebound. Benign. Good bowel sounds. Extremities: No pedal edema. DIAGNOSTIC STUDIES/LAB DATA: Her inpatient diagnostic study was pertinent for CT scan of the abdomen and pelvis, which shows colonic diverticulosis with abnormal wall thickening, stranding in the sigmo id colon consistent with acute diverticulitis and pericolonic air collection with loculated perforati on related to acute diverticulitis. No discrete abscess or non-loculated free air. There is choleli thiasis without cholecystic inflammatory changes and some air-fluid level suggestive of small ileus v ersus bowel obstruction. Chest x-ray: Bibasilar infiltrates suggestive of atelectasis versus infiltrate less likely. Diagnostic studies: She had CBC, multiple of them, most pertinent leukocytosis on 07/23/18 of 13.3 d own to 9.4 on 07/26/18. Her chemistries were slightly hypokalemic, restored to 3.6 on the day of discharge. Urinalysis: +2 w bc's, 2+ leuk esterase. The urine cultures, however, did not reveal any growth. Blood cultures x4, all negative. Urine culture negative. DISCHARGE MEDICATIONS: She was discharged on her home medicines of: 1. Aspirin 81 daily. 2. Hydrochlorothiazide 12.5 daily. New prescriptions: 1. Augmentin 875 b.i.d. for 7 days. 2. Lactulose 1 tab b.i.d. 3. Metronidazole 500 b.i.d. for 7 more days. DISCHARGE INSTRUCTIONS: 1. The patient is to follow up with her primary care, Dr. Nicho Olivo, in 4 to 7 days. Follow up [facility] Dr. Julian Mecenas in 4 to 7 days. 2. The patient is to adhere to low-fiber diet, take all medications as prescribed. If she develops n ausea, vomiting, abdominal pain, to seek immediate medical attention. DISCHARGE DISPOSITION: Home. DISCHARGE CONDITION: Stable. [id number]/[facility] #: [id number]
== END 2018-07-26 14:35 | disposition home or self-care (01) | DRG 244 ==
LOC: ED 17:16 → MEDTELE 07-23 00:16
PROVIDERS: ADMIT Internal Medicine; ATTEND Internal Medicine
DX: K57.20 Diverticulitis of large intestine with perforation and abscess without bleeding (principal); I10 Essential (primary) hypertension; K80.20 Calculus of gallbladder without cholecystitis without obstruction; F41.9 Anxiety disorder, unspecified; K52.9 Noninfective gastroenteritis and colitis, unspecified; I83.93 Asymptomatic varicose veins of bilateral lower extremities; E87.6 Hypokalemia; R41.82 Altered mental status, unspecified; Z79.82 Long term (current) use of aspirin; Z90.721 Acquired absence of ovaries, unilateral; Z86.010 Personal history of colon polyps
CPT/HCPCS: 36415; 71045; 74177; 80048; 80053; 81003; 81015; 83605; 83690; 83735; 84100; 85025; 85027; 85610; 85730; 86140; 86850; 86900; 86901; 87040; 87086; 87088; 99284; A9270-GY; J1644; J2060; J2270; J2405; J2543; J3480; Q9967

== ENCOUNTER 2018-09-24 10:10 | Emergency (ER) | payer BC, MEDICARE ==
--- NOTE | 2018-09-24 10:37 | ED ---
Hypertension - HPI Summary HPI Summary: Patient is a 73 y/o F presenting to ED with concerns of high BP. Patient was diagnosed with diverticulitis six weeks ago. Shortly after, the patient went to see her PCP, Dr. Olivo, who she believes told her to stop taking her BP meds. Patient had a colonoscopy six weeks ago, which the patient reports was normal. However, the patient states that she had a high BP, 187/85, at the time. Patient had called her PCP office yesterday, RN advised that the patient begin taking her two BP meds, amlodipine and HTCZ, again. This morning, patient measured her BP to be 201/102 on her home machine. Patient had a olive brine tester appointment today and asked the provider to check her BP. Her two BP measurements at the olive brine tester office were 220/104 and 202/104. She was advised to come to ED. Patient denies SOB, palpitations and chest pain. She notes that she had a CHILDS this morning at around 0300. Patient drank some water and took two Anacin tablets and reports CHILDS has since resolved. She has taken her BP medications this morning. Patient denies abdominal pain. On triage, pain is denied. Nothing is noted to aggravate/alleviate Sx. Home medications and allergies are reviewed. - History of Current Complaint Stated Complaint: HIGH BLOOD PRESSURE PER PT Hx Obtained From: Patient Hx Last Menstrual Period: NA Onset/Duration: Still Present Timing: Constant Reported Blood Pressure Prior To Arrival: 220/104 and 202/104 Aggravating Factor(s): Nothing Alleviating Factor(s): Nothing Associated Signs & Symptoms: Headaches - since resolved, Other: - no CP, SOB, abdominal pain, palpitations - Allergies/Home Medications Allergies/Adverse Reactions: Allergies Allergy/AdvReac Type Severity Reaction Status Date / Time No Known Allergies Allergy Verified 09/24/18 10:37 Home Medications: Home Medications Norvasc 10 mg PO DAILY 09/24/18 [History Confirmed 09/24/18] Potassium 1 tab PO DAILY 09/24/18 [History Confirmed 09/24/18] PMH/Surg Hx/FS Hx/Imm Hx Endocrine/Hematology History: Denies: Hx Diabetes Cardiovascular History: Reports: Hx Hypertension History: Denies: Hx Renal Disease Sensory History: Reports: Hx Contacts or Glasses Denies: Hx Deafness, Hx Hearing Aid Opthamlomology History: Reports: Hx Contacts or Glasses - Cancer History Hx Chemotherapy: No Hx Radiation Therapy: No Infectious Disease History: No Infectious Disease History: Denies: Traveled Outside the [place] in Last 30 Days - Family History Known Family History: Negative: Cardiac Disease Family History: denies cardio-vascular issues in family lineage - Social History Alcohol Use: Daily Alcohol Amount: 1 glass of wine every night Substance Use Type: Reports: None Smoking Status (MU): Never Smoked Tobacco Review of Systems Cardiovascular: Other - positive - high BP Negative: Palpitations, Chest Pain Negative: Shortness Of Breath Negative: Abdominal Pain Positive: Headache - since resolved All Other Systems Reviewed And Are Negative: Yes Physical Exam - Summary Physical Exam Summary: VITAL SIGNS: Reviewed. GENERAL: Patient is a well-developed and nourished female who is lying comfortable in the stretcher. Patient is not in any acute respiratory distress. HEAD AND FACE: No signs of trauma. No ecchymosis, hematomas or skull depressions. No sinus tenderness. EYES: PERRLA, EOMI x 2, No injected conjunctiva, no nystagmus. EARS: Hearing grossly intact. Ear canals and tympanic membranes are within normal limits. MOUTH: Oropharynx within normal limits. NECK: Supple, trachea is midline, no adenopathy, no JVD, no carotid bruit, no c- spine tenderness, neck with full ROM. CHEST: Symmetric, no tenderness at palpation LUNGS: Clear to auscultation bilaterally. No wheezing or crackles. CVS: Regular rate and rhythm, S1 and S2 present, no murmurs or gallops appreciated. ABDOMEN: Soft, non-tender. No signs of distention. No rebound no guarding, and no masses palpated. Bowel sounds are normal. EXTREMITIES: FROM in all major joints, no edema, no cyanosis or clubbing. NEURO: Alert and oriented x 3. No acute neurological deficits. Speech is normal and follows commands. SKIN: Dry and warm. Triage Information Reviewed: Yes Vital Signs On Initial Exam: Initial Vitals Temp Pulse Resp BP Pulse Ox 98.4 F 98 17 192/101 100 09/24/18 10:11 09/24/18 10:11 09/24/18 10:11 09/24/18 10:11 09/24/18 10:11 Vital Signs Reviewed: Yes Diagnostics - Vital Signs Vital Signs Temp Pulse Resp BP Pulse Ox 09/24/18 10:11 98.4 F 98 17 192/101 100 - Laboratory Result Diagrams: 09/24/18 10:55 09/24/18 10:55 Lab Statement: Any lab studies that have been ordered have been reviewed, and results considered in the medical decision making process. - Radiology CXR Radiology Interpretation Completed By: Radiologist Summary of Radiographic Findings: IMPRESSION: NO ACTIVE CARDIOPULMONARY DISEASE. THIS REPORT WAS REVIEWED BY DR. DIETZ. - EKG 1038 Cardiac Rate: NL - rate of 81 BPM EKG Rhythm: Sinus Rhythm Summary of EKG Findings: EKG showed sinus rhythm with rate of 81 BPM, no ST elevation, normal axis. Dr. Dietz has reviewed and interpreted this EKG. Re-Evaluation - Re-Evaluation First Eval Re-Evaluation Time: 12:13 Comment: I discussed all the findings and test results with the patient. Patient was instructed to return to the emergency room immediately if any of the symptoms return worsens. Plan of care was discussed with the patient and understands and agrees. All questions were answered at patient satisfaction. There were no further complaints or concerns. Lung exam before discharge: CTA B/ L. Good air exchange. No wheezing or crackles heard. CVS: S1 and S2 present. No murmurs appreciated. Patient is alert and oriented x 3. Patient is hemodynamically stable. Patient will be discharged home with follow up PCP in the next 2-3 days. BP before discharged: 169/74 Hypertension Course/Dx - Course Assessment/Plan: Patient is a 73 y/o F presenting to ED with concerns of high BP. Patient was diagnosed with diverticulitis six weeks ago. Shortly after, the patient went to see her PCP, Dr. Olivo, who she believes told her to stop taking her BP meds. Patient had a colonoscopy six weeks ago, which the patient reports was normal. However, the patient states that she had a high BP, 187/85, at the time. Patient had called her PCP office yesterday, RN advised that the patient begin taking her two BP meds, amlodipine and HTCZ, again. This morning, patient measured her BP to be 201/102 on her home machine. Patient had a olive brine tester appointment today and asked the provider to check her BP. Her two BP measurements at the olive brine tester office were 220/104 and 202/104. She was advised to come to ED. Patient denies SOB, palpitations and chest pain. She notes that she had a CHILDS this morning at around 0300. Patient drank some water and took two Anacin tablets and reports CHILDS has since resolved. She has taken her BP medications this morning. Patient denies abdominal pain. Past medical history significant for hypertension, diverticulitis. Blood test results without any significant abnormality except for glucose of 106. Patients blood pressure is elevated therefore the patient was given labetalol. The patient is asymptomatic. She denies any chest pain and palpitations. Patient had a headache but is resolved. EKG shows a normal sinus rhythm without any ST elevations. Chest x-ray impression: No active cardiopulmonary disease. I discussed all the findings and test results with the patient. Patient was instructed to return to the emergency room immediately if any of the symptoms return worsens. Plan of care was discussed with the patient and understands and agrees. All questions were answered at patient satisfaction. There were no further complaints or concerns. Lung exam before discharge: CTA B/L. Good air exchange. No wheezing or crackles heard. CVS: S1 and S2 present. No murmurs appreciated. Patient is alert and oriented x 3. Patient is hemodynamically stable. Patient will be discharged home with follow up PCP in the next 2-3 days. BP before discharged: 169/74 - Diagnoses Differential Diagnosis/HQI PQRI: Hypertension, Hypertensive Crisis, Hypertensive Urgency Provider Diagnoses: Uncontrolled hypertension Discharge - Sign-Out/Discharge Documenting (check all that apply): Patient Departure - discharge Patient Received Moderate/Deep Sedation with Procedure: No - Discharge Plan Condition: Stable Disposition: HOME Patient Education Materials: Hypertension (ED) Referrals: Nicho Olivo MD [Primary Care Provider] - 2 Days Additional Instructions: PLEASE RETURN TO ED FOR ANY CHANGING OR WORSENING SYMPTOMS. FOLLOW UP WITH YOUR PRIMARY CARE PHYSICIAN WITHIN TWO DAYS. - Billing Disposition and Condition Condition: STABLE Disposition: Home - Attestation Statements Document Initiated by Scribe: Yes Documenting Scribe: JEFFERY SIMS Provider For Whom Davin is Documenting (Include Credential): PREETI DIETZ MD Scribe Attestation: JEFFERY Fortune, scribed for PREETI DIETZ MD on 09/24/18 at 2141. Scribe Documentation Reviewed: Yes Provider Attestation: The documentation as recorded by the JEFFERY salazar accurately reflects the service I personally performed and the decisions made by me, PREETI DIETZ MD Status of Scribe Document: Viewed
[2018-09-24 11:10] LABS: ABS Monocytes 0.3 10^3/ul (0-0.8); ABS Neutrophils 5.8 10^3/ul (1.5-7.7); Eosinophil % 0.5 %; Hematocrit 46 % (35-47); Hemoglobin 15.5 g/dL (12.0-16.0); Lymphocyte % 13.9 %; Mean Corpuscular HGB Conc 34 g/dL (31-36); Mean Corpuscular Hemoglobin 33 pg (27-31); Mean Corpuscular Volume 96 fL (80-97); Mean Platelet Volume 8.4 fL (7.4-10.4); Platelet Count 229 10^3/uL (150-450); Red Blood Count 4.77 10^6 /uL (3.70-4.87); Red Cell Distribution Width 14 % (10-15); White Blood Count 7.2 10^3/uL (3.5-10.8)
[2018-09-24] MEDS ORDERED: Labetalol IV* 5 MG/ML 20 ML VIAL IV PUSH ONE (11:22)
[2018-09-24 11:25] LABS: Albumin 4.3 g/dL (3.2-5.2); Albumin/Globulin Ratio 1.7 (1-3); BUN/Creatinine Ratio 9.1 (8-20); Calcium 9.7 mg/dL (8.6-10.3); EGFR African American 75.8 (>60); EGFR Non-African American 62.6 (>60); Globulin 2.6 g/dL (2-4); Total Bilirubin 0.5 mg/dL (0.2-1.0); Total Protein 6.9 g/dL (6.4-8.9)
[2018-09-24 11:41] LABS: TSH (Thyroid Stimulating Horm) 1.62 mcIU/mL (0.34-5.60)
[2018-09-24 13:10] VITALS: BP 177/68
== END 2018-09-24 12:41 | disposition home or self-care (01) ==
LOC: ED 10:10
DX: I10 Essential (primary) hypertension (principal)
CPT/HCPCS: 36415; 71045; 80053; 83605; 83880; 84443; 84484; 85025; 93005; 96374; 99283

== ENCOUNTER 2019-05-30 10:13 | Emergency (ER) | payer BC, MEDICARE ==
--- OUTSIDE RECORDS SUMMARY | 2019-05-30 10:23 | XMS REPORT | Summary of Care ---
:1945 Author Organization [facility] Address [address] [address] Care Team Providers Name Role Phone Nicho Olivo Primary Care Provider Gallo Frederick MD Unavailable Reason for Visit Reason Comments Rash pt states hives on saturday after taking claritin due to itchey eyes. also states fever this weekend with aching joints Encounter Details Date Type Department Care Team Description 05/25/2019 Office Visit [place] Coreen Ugarte, Flu-like symptoms ( Primary Dx); [facility] [address] [place] [address] [place] [address] [phone] Allergies No Known Allergiesdocumented as of this encounter (statuses as of 05/25/2019) Medications Medication Sig Dispensed Refills Start Date End Date Status hydrochlorothiazide (HCTZ, Take 12.5 mg 0 Active ORETIC) 12.5 MG Oral Cap by mouth DAILY. Probiotic Product Take 1 Cap by 0 Active (PROBIOTIC DAILY PO) mouth DAILY. Spironolactone-HCTZ 25-25 TAKE ONE-HALF 30 Tab 1 03/05/2019 Active MG Oral Tab TABLET BY MOUTH EVERY DAY amLodipine (NORVASC) 10 MG TAKE ONE 90 Tab 1 04/21/2019 Active Oral Tab TABLET BY MOUTH EVERY DAY oseltamivir (TAMIFLU) 75 MG Take 1 Cap by 10 Cap 0 05/25/2019 Active Oral Cap mouth TWICE DAILY. documented as of this encounter (statuses as of 05/25/2019) Active Problems Problem Noted Date Bilateral low back pain without sciatica 09/17/2016 Hypertension documented as of this encounter (statuses as of 05/25/2019) Immunizations Name Administration Dates Next Due Influenza (IM) Preservative Free 01/18/2016, 01/19/2013, 01/18/2012 Influenza Vaccine 65 Yrs + 01/23/2019 Influenza Vaccine High Dose 02/22/2017, 01/18/2016, 01/27/2015, 12/25/2013 PNEUMOCOCCAL POLYSACCHARIDE VACCINE 09/05/2009 Pneumococcal Conjugate Vaccine 09/05/2015 Pneumococcal Conjugate(13 Valent) 09/05/2015 documented as of this encounter Social History Tobacco Use Types Packs/Day Years Used Date Never Smoker Smokeless Tobacco: Never Used Alcohol Use Drinks/Week oz/Week Comments Yes 10 Standard drinks or equivalent 8.3 Sex Assigned at Date Recorded Not on file Job Start Date Occupation Industry Not on file Not on file Not on file Travel History Travel Start Travel End No recent travel history available. documented as of this encounter Last Filed Vital Signs Vital Sign Reading Time Taken Comments Blood Pressure 138/80 05/25/2019 8:10 AM EST Pulse 100 05/25/2019 8:10 AM EST Temperature 37.8 05/25/2019 8:10 AM EST C (100 F) Respiratory Rate - - Oxygen Saturation 98% 05/25/2019 8:10 AM EST Inhaled Oxygen Concentration - - Weight 67.1 kg (148 lb) 05/25/2019 8:10 AM EST Height 160 cm (5' 3") 05/25/2019 8:10 AM EST Body Mass Index 26.22 05/25/2019 8:10 AM EST documented in this encounter Patient Instructions Patient InstructionsDodgCoreen mcghee PA-C - 05/25/2019 8:00 AM EST1. Did flu nasal swab -- will call patient tomorrow with results Escribed Tamiflu, 1 pill twice daily x 5 days Avoid creamy foods and drink Rest, gargle with warm salt water Push water, soup, juice, tea with honey/lemon OTC Tylenol/Ibuprofen for fever/pain 2. Hives resolved Call if not improving or with any questions or concerns documented in this encounter Progress Notes Coreen Duran PA-C - 05/25/2019 8:00 AM EST PATIENT: Audelia Noe : 1945 DATE OF SERVICE: 05/25/2019 REFERRING PRACTITIONER: Self-Referred PRIMARY CARE PROVIDER: Nicho Olivo Accompanied by CHIEF COMPLAINT: Chief Complaint Patient presents with Rash pt states hives on saturday after taking claritin due to itchey eyes. also states fever this with aching joints Subjective HISTORY OF PRESENT ILLNESS: Audelia Noe is a 74-y.o. 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 but had vaccine 12/09/08 Skin cancer Tetanus-diphtheria (Td) vaccination 08/22 not tdap Past Surgical History: Procedure Laterality Date [place] MASTECTOMY, PARTIAL Right 1989 Benign [place] REMOVAL OF OVARY(S) one side only Family History Problem Relation Age of Onset Breast Cancer Mother but lived to Osteoporosis Unknown Alzheimer's Disease Unknown Heart Unknown Hypertension Unknown Cancer Father brain ca Heart Father [place] Hypertension Father No Known Problems Daughter No Known Problems Son Current Outpatient Medications Medication Sig amLodipine (NORVASC) 10 MG Oral Tab TAKE ONE TABLET BY MOUTH EVERY DAY hydrochlorothiazide (HCTZ, ORETIC) 12.5 MG Oral Cap Take 12.5 mg by mouth DAILY. Probiotic Product (PROBIOTIC DAILY PO) Take 1 Cap by mouth DAILY. Spironolactone-HCTZ 25-25 MG Oral Tab TAKE ONE-HALF TABLET BY MOUTH EVERY DAY No current facility-administered medications for this visit. No Known Allergies Social History Socioeconomic History Marital status: Spouse name: Not on file Number of children: Not on file Years of education: Not on file Highest education level: Not on file Occupational History Not on file Social Needs Financial resource strain: Not on file Food insecurity Worry: Not on file Inability: Not on file Transportation needs Medical: Not on file Non-medical: Not on file Tobacco Use Smoking status: Never Smoker Smokeless tobacco: Never Used Substance and Sexual Activity Alcohol use: Yes Alcohol/week: 8.3 standard drinks Types: 10 Standard drinks or equivalent per week Comment: Drug use: No Sexual activity: Not on file Lifestyle Physical activity Days per week: Not on file Minutes per session: Not on file Stress: Not on file Relationships Social connections Talks on phone: Not on file Gets together: Not on file Attends faith service: Not on file Active member of club or organization: Not on file Attends meetings of clubs or organizations: Not on file Relationship status: Not on file Intimate partner violence Fear of current or ex partner: Not on file Emotionally abused: Not on file Physically abused: Not on file Forced sexual activity: Not on file Other Topics Concern Back Care Not Asked Bike Helmet Not Asked Blood Transfusions Not Asked Caffeine Concern Not Asked Exercise Not Asked Hobby Hazards Not Asked International Travel Not Asked Service Not Asked Occupational Exposure Not Asked Seat Belt Not Asked Self-Exams Not Asked Sleep Concern Not Asked Special Diet Not Asked Stress Concern Not Asked Weight Concern Not Asked 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 REVIEW OF SYSTEMS: Skin: positive had diffuse hives x 1 days, now gone Eyes: negative visual blurring Ears/Nose/Throat: negative rhinorrhea, sore throat, sinus pressure, post nasal drip Respiratory: negative cough Cardiovascular: negative chest pain Gastrointestinal: negative abdominal pain, constipation, diarrhea, nausea or vomiting Genitourinary: negative burning on urination, dysuria or vaginal discharge Musculoskeletal: positive arthritis/joint pain, body aches Neurologic: negative numbness or tingling of feet or hands Psychiatric: negative anxiety Hematologic/Lymphatic/Immunologic: negative allergies. Positive fever Endocrine: negative diabetes or hot flashes/sweats Objective PHYSICAL EXAMINATION: VITALS: BP 138/80 (BP Location: Right arm, Patient Position: Sitting) | Pulse 100 | Temp 100 F (37.8 C) | Ht 5' 3" (1.6 m) | Wt 148 lb (67.1 kg) | SpO2 98% | BMI 26.22 kg/m Body mass index is 26.22 kg/m. General appearance - alert, moderate distress, cooperative, oriented times 3 Skin - No rash or lesions Head - Normocephalic. No masses, lesions, tenderness or abnormalities Eyes - conjunctivae/corneas clear. PERRL, EOM's intact. Lungs - Good diaphragmatic excursion. Lungs clear. Chest symmetrical. Normal breath sounds. Heart - RRR. No murmurs, clicks or gallops. No peripheral edema. Ears: TMs and canals normal bilaterally Nose/Sinuses: positive findings: mucosa erythematous, no rhinorrhea Oropharynx: positive findings: mild oropharyngeal erythema, post nasal drip present Neck: Neck supple, FROM. No cervical or supraclavicular adenopathy. Lungs: Lungs clear. Chest symmetrical. Normal breath sounds. Heart: RRR. No murmur, clicks or gallops. No peripheral edema . IMPRESSION: ICD-9-CM ICD-10-CM 1. Flu-like symptoms 780.99 R68.89 2. Hives 708.9 L50.9 Plan PLAN: 1. Did flu nasal swab -- will call patient tomorrow with results Escribed Tamiflu, 1 pill twice daily x 5 days Avoid creamy foods and drink Rest, gargle with warm salt water Push water, soup, juice, tea with honey/lemon OTC Tylenol/Ibuprofen for fever/pain 2. Hives resolved Call if not improving or with any questions or concerns Author: Coreen Duran PA-C 05/25/2019 08:05 documented in this encounter Plan of Treatment Health Maintenance Due Date Last Done Comments DTaP/Tdap/Td Vaccines (1 - 1954 Tdap) HIV SCREENING 1958 ZOSTER IMMUNIZATION SERIES (1 1993 of 2) FALL RISK ASSESSMENT 10/01/2019 09/30/2018, 09/30/2018 HEPATITIS A IMMUNIZATION Aged Out No longer eligible based SERIES on patient's age to complete this topic HPV IMMUNIZATION SERIES Aged Out No longer eligible based on patient's age to complete this topic MENINGOCOCCAL VACCINE IMM Aged Out No longer eligible based on patient's age to complete this topic documented as of this encounter Goals Goal Patient Goal Associated Recent Patient-Stated? Author Type Problems Progress Blood Pressure Blood Pressure 138/80 No Pallavi, < 150/90 (05/25/2019 MD Nicho 8:10 AM EST) Note: This is an individualized treatment (blood pressure) goal for Audelia Noe: Displayed above (on the left) is your goal for blood pressure control. Your most recent blood pressure is also shown above, on the right. You should try to achieve blood pressures that are lower than your goal listed above (on the left). Take all prescribed medications as directed Self-management No Nicho Olivo MD Note: This is an individualized self-management goal for Audelia Noe: Please take all prescribed medications as directed. 1. Do not skip doses. If you cannot afford your medications, talk with your doctor. 2. Use a pill reminder system such as a pill box if needed. Your pharmacist can help you with this. 3. Contact your Pharmacy 5 days before your medication runs out. If you cannot take your medications for any reasons, talk with your doctor. 4. Please bring all of your medication bottles and inhalers (or a list of all your medications/inhalers) with you to every visit. Potential barriers to meeting all of your care plan goals will continue to be addressed on an ongoing basis. 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
--- OUTSIDE RECORDS SUMMARY | 2019-05-30 10:23 | XMS REPORT | Continuity of Care Document ---
:1945 External Reference #:[id number] Author Name Asia Bedoya O.D. Address [address] [place] [address] Care Team Providers Name Role Phone Nicho Olivo M.D. - Family Medicine Care Team Information Department Store Salesperson [phone] Sallie Mendiola M.D. - Pediatric Care Team Information Department Store Salesperson [phone] Dermatology Problems Active Problems Provider Date Cyst of ovary Onset: Arthritis Onset: Essential hypertension Onset: Nuclear senile cataract Asia Bedoya O.D. Onset: 12/23/2015 Combined form of senile cataract Asia Bedoya O.D. Onset: 04/17/2017 Vitreous degeneration Asia Bedoya O.D. Onset: 04/17/2017 Rosacea Onset: Tear film insufficiency Asia Bedoya O.D. Onset: 05/02/2018 Social History Type Date Description Comments Sex Unknown ETOH Use Consumes 1-2 glasses of wine per day Recreational Drug Use Denies Drug Use Tobacco Use Start: Unknown Patient has never smoked Smoking Status Reviewed: 05/07/19 Patient has never smoked Allergies, Adverse Reactions, Alerts Description No Known Drug Allergies Medications Active Medications SIG Qnty Indications Ordering Provider Date Amlodipine Besylate Unknown 10mg Tablets Spironolactone/Hydrochlorothiazide Unknown 25-25mg Tablets Probiotic Unknown Capsules Immunizations Description No Information Available Vital Signs Description No Information Available Results Description No Information Available Procedures Description No Information Available Medical Devices Description No Information Available Encounters Description No Information Available Assessments Date Code Description Provider 05/07/2019 H25.813 Combined forms of age-related cataract, Asia Bedoya O.D. bilateral 05/07/2019 H43.813 Vitreous degeneration, bilateral Asia Bedoya O.D. Plan of Treatment 05/07/2019 - Asia Bedoya O.D.H25.813 Combined forms of age-related cataract, bilateralComments:You have been diagnosed with cataracts. If you are happy with your vision as it is now, then we willsee you at your next scheduled appointment. If you feel like your vision is getting worse before your scheduled appointment, please call [facility] at [phone].Follow up:1 Year Follow Up You can expect to have your eyes dilated at your next visit. If Dr. Bedoya orders any additional testing, it may require extra time. We recommend that you bring sunglasses, as dilation drops often make you light sensitive until they wear off. We always recommend you bring someone to drive you home if you are uncomfortable driving with your eyes dilated. If you have any questions before your next visit, feel free to call our office at .H43.813 Vitreous degeneration, bilateralComments:You have a Posterior Vitreous Detachment. Please read the pamphlet that was given to you. If you have any changes in your floaters or flashing lights, please contact this office. Functional Status Description No Information Available Mental Status Description No Information Available Referrals Description No Information Available
[2019-05-30 10:27] VITALS: BP 130/78
--- NOTE | 2019-05-30 10:45 | UC ---
General HPI - HPI Summary HPI Summary: 74 yo woman with about 10 or 11 days of anton-orbital pruritis, with some associated eye redeness. Prior to that had babysat her grandson, who had a viral URI with some fever and joint pain. About a week ago, she developed a low grade fever and pain in her feet and some mild swelling in her hands, which has resolved. Was tested for influenza which was negative. Several days later she was advised to use mucinex, and is not certain why. She did take several doses about 4 days ago, but stopped it because she was uncertain of use. She also took a loratidine for itching--this did not help and the next day she developed a rash on her upper thighs. In the past 2 days she has had progressive itching, with worsening periorbital erythema. Past dx of dry eyes, and she began using visine with worsening of the redness and swelling around the eyes. She has had a low grade fever, joint pains have resolved at this time. - History of Current Complaint Chief Complaint: [facility] Stated Complaint: HIEVES,LOW GRADE FEVER Time Seen by Provider: 05/30/19 10:34 Hx Obtained From: Patient Hx Last Menstrual Period: NA Onset/Duration: Gradual Onset, Lasting Days Timing: Constant Onset Severity: Mild Current Severity: Moderate Pain Intensity: 0 Associated Signs & Symptoms: Positive: Diarrhea - on one occasion, Decreased Oral Intake - decreased appetite. Negative: Cough, Chest Pain, Dizziness, Dysuria, Syncope, Wheezing - Allergy/Home Medications Allergies/Adverse Reactions: Allergies Allergy/AdvReac Type Severity Reaction Status Date / Time No Known Allergies Allergy Verified 05/30/19 10:28 PMH/Surg Hx/FS Hx/Imm Hx Previously Healthy: Yes Cardiovascular History: Hypertension GI/ History: Diverticulitis - in the past - Surgical History Surgical History: Yes Surgery Procedure, Year, and Place: brst lump removed,ovary removed - Family History Known Family History: Positive: Cardiac Disease, Hypertension - Social History Occupation: Retired Lives: With Family Alcohol Use: Daily Alcohol Amount: 1 glass of wine every night Substance Use Type: None Smoking Status (MU): Never Smoked Tobacco - Immunization History Most Recent Influenza Vaccination: unknown Most Recent Pneumonia Vaccination: pt stated that she has received in the past Review of Systems All Other Systems Reviewed And Are Negative: Yes Constitutional: Positive: Fever Skin: Positive: Rash Eyes: Negative: Blurred Vision ENT: Negative: Sore Throat, Sinus Congestion Respiratory: Negative: Shortness Of Breath, Cough Cardiovascular: Positive: Negative Gastrointestinal: Positive: Diarrhea - on occasion Genitourinary: Positive: Negative Motor: Positive: Negative Neurovascular: Positive: Negative Musculoskeletal: Positive: Arthralgia Neurological/Mental Status: Positive: Negative Psychological: Positive: Negative Is Patient Immunocompromised?: No Physical Exam Triage Information Reviewed: Yes Appearance: Well-Appearing, No Pain Distress Vital Signs: Initial Vital Signs Temp 99.2 F 05/30/19 10:23 Pulse 98 05/30/19 10:23 Resp 18 05/30/19 10:23 BP 130/78 05/30/19 10:23 Pulse Ox 100 05/30/19 10:23 Eye Exam: Other - GREGORY. Periorbital erythema and swelling without tenderness to palpation. Normal EOM. Eyes: Positive: Conjunctiva Clear ENT: Positive: Pharynx normal, TMs normal Neck: Positive: Supple, Nontender, No Lymphadenopathy Respiratory: Positive: Lungs clear, Normal breath sounds Cardiovascular: Positive: RRR, No Murmur Abdomen Description: Positive: Nontender, No Organomegaly, Soft Musculoskeletal Exam: Normal Neurological Exam: Normal Psychological Exam: Normal Skin Exam: Other - Marked periorbital swelling and erythema--not affecting the lids. Faint non-blanching erythema of the outer and anterior thighs Course/Dx - Course Course Of Treatment: Periorbital dermatitis likely being worsened by drops. Labs done to assess for causes s of pruritis including LFT's. ? might have begun as a parvovirus??? Will use oral steroid for itching, 1% HC cream to the eyes. - Diagnoses Provider Diagnosis: Chronic pruritic rash in adult, Contact dermatitis Discharge ED - Sign-Out/Discharge Documenting (check all that apply): Patient Departure All imaging exams completed and their final reports reviewed: No Studies - Discharge Plan Condition: Stable Disposition: HOME Prescriptions: predniSONE [Prednisone 20 MG TAB] 20 mg PO BID #10 tablet Patient Education Materials: Contact Dermatitis (ED) Referrals: Nicho Olivo MD [Primary Care Provider] - Additional Instructions: There are several possibilities for the cause of the itching. ~you might have had a viral infection called parvorirus causing the initial joint pains and rash. ~ I think that the swelling and redness around the eyes is a dermatitis worsened by the visine. Please STOP use of this. ~warm compress your eyes and use 1% hydrocortisone cream on the rash around the eyes twice ddaily FOR NO MORE THAN A WEEK ~YOU HAVE BEEN PRESCRIBED PREDNISONE TO DECREASE THE ITCHING AND RASH. PLEASE TAKE WITH FOOD. ~lab work has been done to look for a cause for the itching ~schedule a follow up with Dr. Olivo for 06/01 or to review labs and check on your progress. - Billing Disposition and Condition Condition: STABLE Disposition: Home
[2019-05-30 14:31] LABS: ABS Basophils 0.1 10^3/ul (0-0.2); ABS Eosinophils 0.1 10^3/ul (0-0.6); ABS Lymphocytes 0.8 10^3/ul (1.0-4.8); ABS Monocytes 0.5 10^3/ul (0-0.8); ABS Neutrophils 4.3 10^3/ul (1.5-7.7); Eosinophil % 1.5 %; Hematocrit 43 % (35-47); Hemoglobin 14.9 g/dL (12.0-16.0); Lymphocyte % 13.5 %; Mean Corpuscular HGB Conc 35 g/dL (31-36); Mean Corpuscular Hemoglobin 34 pg (27-31); Mean Corpuscular Volume 96 fL (80-97); Mean Platelet Volume 8.4 fL (7.4-10.4); Nucleated Red Blood Cells % 0.1; Platelet Count 246 10^3/uL (150-450); Red Blood Count 4.44 10^6 /uL (3.70-4.87); Red Cell Distribution Width 12 % (10-15); White Blood Count 5.7 10^3/uL (3.5-10.8)
[2019-05-30 14:36] LABS: Calcium 9.1 mg/dL (8.6-10.3); Potassium 3.9 mmol/L (3.5-5.0); Total Bilirubin 0.4 mg/dL (0.2-1.0)
[2019-05-30 14:42] LABS: Albumin/Globulin Ratio 1.5 (1-3); BUN/Creatinine Ratio 11.1 (8-20); EGFR African American 73.7 (>60); EGFR Non-African American 60.9 (>60); Globulin 2.6 g/dL (2-4); Total Protein 6.6 g/dL (6.4-8.9)
[2019-05-30 14:57] LABS: TSH (Thyroid Stimulating Horm) 1.07 mcIU/mL (0.34-5.60)
--- NOTE | 2019-05-31 07:17 | UC ---
- Progress Note Progress Note: Reviewed blood work 05/30/19 and [facility] notes same date. Blood glucose 130mg/dL May be related to inflammatory state (febrile illness); bowever, suggest f/u PCP in the next 1-2 weeks for re-evaluation. Course/Dx - Diagnoses Provider Diagnoses: Chronic pruritic rash in adult, Contact dermatitis Discharge ED - Sign-Out/Discharge Documenting (check all that apply): Post-Discharge Follow Up All imaging exams completed and their final reports reviewed: No Studies - Discharge Plan Condition: Stable Disposition: HOME Prescriptions: predniSONE [Prednisone 20 MG TAB] 20 mg PO BID #10 tablet Patient Education Materials: Contact Dermatitis (ED) Referrals: Nicho Olivo MD [Primary Care Provider] - Additional Instructions: There are several possibilities for the cause of the itching. ~you might have had a viral infection called parvorirus causing the initial joint pains and rash. ~ I think that the swelling and redness around the eyes is a dermatitis worsened by the visine. Please STOP use of this. ~warm compress your eyes and use 1% hydrocortisone cream on the rash around the eyes twice ddaily FOR NO MORE THAN A WEEK ~YOU HAVE BEEN PRESCRIBED PREDNISONE TO DECREASE THE ITCHING AND RASH. PLEASE TAKE WITH FOOD. ~lab work has been done to look for a cause for the itching ~schedule a follow up with Dr. Olivo for 06/01 or to review labs and check on your progress. - Billing Disposition and Condition Condition: STABLE Disposition: Home
== END 2019-05-30 11:24 | disposition home or self-care (01) ==
LOC: UCEAST 10:13
DX: L29.9 Pruritus, unspecified (principal); L25.9 Unspecified contact dermatitis, unspecified cause; R19.7 Diarrhea, unspecified; I10 Essential (primary) hypertension
CPT/HCPCS: 36415; 80053; 84443; 85025; 99212; G0463